=== PATIENT | female | born 1960 | race Caucasian/White ===

== ENCOUNTER 2017-01-07 18:20 | Emergency (ER) | payer OTHER ==
[~2017-01-07] VITALS: Ht 154.9 cm; Wt 88.7 kg
[~2017-01-07 18:20] MED LIST: ASPI-558 PO; MULT-1243 PO; ORPH100T2 PO; TRAM50TA53 PO
--- OUTSIDE RECORDS SUMMARY | 2017-01-07 18:23 | XMS REPORT | Continuity of Care Document ---
Author Author [facility] Organization [facility] Address Unknown Phone Unavailable Support Name Relationship Address Phone DARRIUS SINGLETON MD Caregiver [address] [phone] PHILIPPE CACERES MD Caregiver [address] [place] [phone] MARLEN REYES Next Of Kin [address] [place] [address] Insurance Providers Payer Name Policy Number Subscriber Name Relationship Auto A Insurance Sheila Reyes 19 Self [facility] [id number] Sheila Reyes 19 Self Advance Directives Directive Response Recorded Date/Time Advanced Directives Type None 10/23/14 10:30pm Problems Medical Problems Problem Onset Date Status Neck muscle strain Unknown Active Sciatica Unknown Active Low back strain Unknown Active Neck muscle strain Unknown Active Medications Medication Dose Route Sig Days/Qty Instructions Order Date Discontinued Date Status [None] 05/16/09 02/21/10 Discontinued Aspirin DAILY 02/21/10 Active Cholecalciferol (Vitamin D3) 2,000 Unit PO DAILY 05/23/12 08/08/12 Discontinued Ferrous Sulfate 325 ( PO DAILY 05/23/12 08/08/12 Discontinued Multivits-Min/FA/Lycopene/Lut 1 Tab PO DAILY 06/19/14 Active Orphenadrine Citrate 100 Mg PO EVERY 12 HOURS 14 Qty 10/24/14 Active Tramadol HCl 50 Mg PO Q6H/0300,0900,1500,2100 For PAIN 20 Qty Take 1 tablet, by mouth, every 6 hours. 10/24/14 Active Social History Social History Problem Response Recorded Date/Time Chewing Tobacco Status No 10/23/2014 9:22pm Hx Substance Use No 10/23/2014 9:22pm Hx Alcohol Use Y social 10/23/2014 9:22pm Query Response Start Date Stop Date Smoking Status Never smoker Hospital Discharge Instructions No hospital discharge instructions. Plan of Care No plan of care. Functional Status Query Response Date Recorded Physical Hygiene Self October 23, 2014 9:22pm Disabilities Visual October 23, 2014 9:22pm Devices Used Glasses October 23, 2014 9:22pm Dressing Self October 23, 2014 9:22pm Ambulation Self October 23, 2014 9:22pm Diet Self October 23, 2014 9:22pm Mental Status Alert Oriented October 23, 2014 9:22pm Disabilities Visual October 23, 2014 9:22pm Devices Used Glasses October 23, 2014 9:22pm Physical Hygiene Self October 23, 2014 9:22pm Dressing Self October 23, 2014 9:22pm Ambulation Self October 23, 2014 9:22pm Diet Self October 23, 2014 9:22pm Allergies, Adverse Reactions, Alerts Allergen Type Severity Reaction Status Last Updated No Known Allergies Active 10/23/14 Immunizations Name Given Type Hx Influenza Vaccination Y 09/2014 Historical Hx Pneumococcal Vaccination No Historical Hx Influenza Vaccination Y 09/2014 Historical Vital Signs Acute Vital Signs Vital Response Date/Time Temperature (Fahrenheit) 98.2 deg F (96.8 - 99.1) Temperature (Calculated Celsius) 36.17334 degrees C (36.0 - 37.3) Pulse Rate (adult) 88 bpm (60 - 100) Respiratory Rate 16 breaths/min (10 - 20) O2 Sat by Pulse Oximetry 96 % (90 - 100) Blood Pressure 129/74 mm Hg Height 5 ft 2 in Weight 205 lb Body Mass Index 37.0 kg/m^2 Results Test Source Date Result Interp. Ref. Range Comments Alanine Aminotransferase (ALT/SGPT) May 02, 2013 12:40am 41 U/L N 9- 52 Albumin May 02, 2013 12:40am 4.6 G/DL N 3.5-5.0 Albumin/Globulin Ratio May 02, 2013 12:40am 1.2 RATIO N 1.1-2.2 Alkaline Phosphatase May 02, 2013 12:40am 123 U/L N 38-126 Amylase Level August 08, 2012 9:45pm 66 U/L N 30-110 Anion Gap May 02, 2013 12:40am 14 MEQ/L N 5-15 Aspartate Amino Transf (AST/SGOT) May 02, 2013 12:40am 43 U/L H 14- 36 BUN/Creatinine Ratio May 02, 2013 12:40am 24 RATIO N 6-26 Basophils # (Auto) May 02, 2013 12:40am 0.1 T/MM3 N 0-0.2 Basophils (%) (Auto) May 02, 2013 12:40am 0.8 % N 0-2 Blood Urea Nitrogen May 02, 2013 12:40am 12.0 MG/DL N 7-17 Calcium Level May 02, 2013 12:40am 9.3 MG/DL N 8.4-10.2 Calculated Osmolality May 02, 2013 12:40am 277 MOSM/KG N 261-280 Carbon Dioxide Level May 02, 2013 12:40am 28 MEQ/L N 22-30 Chloride Level May 02, 2013 12:40am 102 MEQ/L N 98-107 Conjugated Bilirubin May 02, 2013 12:40am 0.00 MG/DL N 0.00-0.30 Creatinine May 02, 2013 12:40am 0.5 MG/DL L 0.7-1.2 Eosinophils # (Auto) May 02, 2013 12:40am 0.2 T/MM3 N 0-0.5 Eosinophils (%) (Auto) May 02, 2013 12:40am 1.8 % N 0-4 Gastric Fluid Occult Blood November 08, 2011 11:20pm Pos - Has specimen been collected/obtained? Y Gastric Fluid pH November 08, 2011 11:20pm Test not performed - Globulin May 02, 2013 12:40am 3.9 G/DL H 2.4-3.6 Glucose Level May 02, 2013 12:40am 106 MG/DL N 65-110 Hematocrit May 02, 2013 12:40am 42.6 % N 36-46 Hemoglobin May 02, 2013 12:40am 14.7 GM/DL N 12-16 Lipase May 02, 2013 12:40am 137 U/L N 23-300 Lymphocytes # (Auto) May 02, 2013 12:40am 5.2 T/MM3 H 1-4.8 Lymphocytes (%) (Auto) May 02, 2013 12:40am 51.4 % H 23-45 Mean Corpuscular Hemoglobin May 02, 2013 12:40am 29.9 UUG N 26-34 Mean Corpuscular Hemoglobin Concent May 02, 2013 12:40am 34.5 GM/DL N 31-37 Mean Corpuscular Volume May 02, 2013 12:40am 86.8 UM3 N 80-100 Mean Platelet Volume May 02, 2013 12:40am 8.8 UM3 L 9.4-12.4 Monocytes # (Auto) May 02, 2013 12:40am 0.7 T/MM3 N 0-0.8 Monocytes (%) (Auto) May 02, 2013 12:40am 6.8 % N 0-9.0 Neutrophils # (Auto) May 02, 2013 12:40am 3.9 T/MM3 N 1.8-7.7 Neutrophils (%) (Auto) May 02, 2013 12:40am 39.0 % N 33-66 Platelet Count May 02, 2013 12:40am 286 T/MM3 N 130-400 Potassium Level May 02, 2013 12:40am 3.7 MEQ/L N 3.6-5 RDW Standard Deviation May 02, 2013 12:40am 40.0 FL N 36.9-50.2 Red Blood Count May 02, 2013 12:40am 4.91 M/MM3 N 4.00-5.20 Sodium Level May 02, 2013 12:40am 144 MEQ/L N 134-144 Thyroid Stimulating Hormone (TSH) November 09, 2011 5:00am 0.53 MIU/L N 0.47-4.68 COMMENT may use blood from lab Total Bilirubin May 02, 2013 12:40am 0.60 MG/DL N 0.20-1.30 Total Protein May 02, 2013 12:40am 8.5 G/DL H 6.3-8.2 Troponin I May 02, 2013 12:40am < 0.012 ng/ml 0-0.12 Unconjugated Bilirubin May 02, 2013 12:40am 0.20 MG/DL N 0.00-1.10 Urine Bacteria August 08, 2012 10:30pm 4+ H - Has specimen been collected/obtained? Y Urine Bilirubin August 08, 2012 10:30pm Negative - Has specimen been collected/obtained? Y Urine Blood August 08, 2012 10:30pm Negative - Has specimen been collected/obtained? Y Urine Collection Type August 08, 2012 10:30pm Voided - Has specimen been collected/obtained? Y Urine Color August 08, 2012 10:30pm Yellow - Has specimen been collected/obtained? Y Urine Culture Indicated August 08, 2012 10:30pm Cult reflexed &setup - Has specimen been collected/obtained? Y Urine Glucose (UA) August 08, 2012 10:30pm Negative - Has specimen been collected/obtained? Y Urine Ketones August 08, 2012 10:30pm Negative - Has specimen been collected/obtained? Y Urine Leukocyte Esterase August 08, 2012 10:30pm Trace H - Has specimen been collected/obtained? Y Urine Mucus November 08, 2011 11:00pm Present - Has specimen been collected/obtained? Y Urine Nitrite August 08, 2012 10:30pm Negative - Has specimen been collected/obtained? Y Urine Protein August 08, 2012 10:30pm Negative - Has specimen been collected/obtained? Y Urine RBC August 08, 2012 10:30pm 1-3 /HPF - Has specimen been collected/obtained? Y Urine Specific [place] August 08, 2012 10:30pm 1.025 - Has specimen been collected/obtained? Y Urine Squamous Epithelial Cells August 08, 2012 10:30pm Many - Has specimen been collected/obtained? Y Urine Turbidity August 08, 2012 10:30pm Slt cldy - Has specimen been collected/obtained? Y Urine Urobilinogen August 08, 2012 10:30pm 8 EU/DL H - Has specimen been collected/obtained? Y Urine WBC August 08, 2012 10:30pm 3-5 /HPF - Has specimen been collected/obtained? Y Urine pH August 08, 2012 10:30pm 6.0 - Has specimen been collected/ obtained? Y White Blood Count May 02, 2013 12:40am 10.1 T/MM3 N 4.5-11.0 Glomerular Filtration Rate Calc May 02, 2013 12:40am 130 - Immature Granulocyte # (Auto) May 02, 2013 12:40am 0.02 T/MM3 N 0.00- 0.03 Immature Granulocyte % (Auto) May 02, 2013 12:40am 0.2 % N 0.0-0.5 Urine Culture Urine, Clean Catch Voided August 08, 2012 11:01pm Mixed Gram Positive Organisms Procedures No known history of procedures. Encounters Encounter Location Date/Time Departed Emergency Room [facility] 10/23/14 8:33pm Recent Diagnosis
--- OUTSIDE RECORDS SUMMARY | 2017-01-07 18:24 | XMS REPORT | Continuity of Care Document ---
Author Author [facility] Organization [facility] Address Unknown Phone Unavailable Support Name Relationship Address Phone DARRIUS SINGLETON MD Caregiver [address] [place] [address] [place], [place] [phone] JOVAN CRUZ FACS, MD Caregiver [address] [place] [address] [place] [phone] MARLEN REYES Next Of Kin [address] [place], [place] [id number] Insurance Providers Payer Name Policy Number Subscriber Name Relationship [facility] [id number] Sheila Reyes 19 Self Advance Directives Directive Response Recorded Date/Time Ordered Resuscitation Status Full Code 06/19/14 2:45pm Problems No known problems or medical conditions. Medications Medication Dose Route Sig Days/Qty Instructions Order Date Discontinued Date Status [None] 05/16/09 02/21/10 Discontinued Aspirin DAILY 02/21/10 Active Cholecalciferol (Vitamin D3) 2,000 Unit PO DAILY 05/23/12 08/08/12 Discontinued Ferrous Sulfate 325 ( PO DAILY 05/23/12 08/08/12 Discontinued Multivits-Min/FA/Lycopene/Lut 1 Tab PO DAILY 06/19/14 Active Social History Social History Problem Response Recorded Date/Time Smoking Status Never smoker 06/22/2014 8:19am Chewing Tobacco Status No 06/22/2014 8:19am Hx Substance Use No 06/22/2014 8:19am Hx Alcohol Use No 06/22/2014 8:19am Query Response Start Date Stop Date Smoking Status Never smoker Hospital Discharge Instructions No hospital discharge instructions. Plan of Care No plan of care. Functional Status No functional status results. Allergies, Adverse Reactions, Alerts Allergen Type Severity Reaction Status Last Updated No Known Allergies Active 05/02/13 Immunizations Name Given Type Hx Influenza Vaccination Y FALL 2012 Historical Hx Pneumococcal Vaccination No Historical Hx Influenza Vaccination Y FALL 2012 Historical Vital Signs Acute Vital Signs Vital Response Date/Time Temperature (Fahrenheit) 96.9 deg F (96.8 - 99.1) Temperature (Calculated Celsius) 36.36790 degrees C (36.0 - 37.3) Temperature Source Temporal Pulse Rate (adult) 56 bpm (60 - 100) Respiratory Rate 12 breaths/min (10 - 20) O2 Sat by Pulse Oximetry 96 % (90 - 100) Oxygen Delivery Method Room Air Blood Pressure 122/68 mm Hg Blood Pressure Source Automatic Cuff Height 5 ft 2 in Weight 209 lb Body Mass Index 38.0 kg/m^2 Results Test Source Date Result Interp. [...] Has specimen been collected/obtained? Y Urine Specific [place] August 08, 2012 10:30pm 1.025 - Has [...] 2012 11:01pm Mixed Gram Positive Organisms Procedures Procedure Status Date Provider(s) Colonoscopy with polypectomy and biopsy completed 06/22/14 JOVAN CRUZ MD, FACS, CWS
[2017-01-07 18:38] VITALS: TEMP 101.4; Ht 154.9 cm; Wt 88.7 kg
[2017-01-07] MEDS ORDERED: ONDANSETRON 4mg/2ml INJECTION IV ONE (19:00)
[2017-01-07] MEDS ORDERED: G.I. COCKTAIL 30ml PO ONE (19:00)
--- NOTE | 2017-01-07 19:07 | ERPDOC ---
Departure Disposition Decision Date: Jan 07, 2017 Disposition Decision Time: 20:59 Disposition: 01 DISCHARGED HOME, SELF-CARE Impression Impression Impression: Primary Impression: Gastroenteritis Severity: Moderate Condition: Improved Seen By: Physician only Referrals: DARRIUS SINGLETON MD (Family) 3 Days Patient Instructions: Gastroenteritis (ED) Problems/Meds/Labs Reviewed?: Yes Medications reviewed and manag: Yes Additional Instructions: You have a stomach bug. Drink lots of fluids, take tylenol and ibuprofen as needed for pain, allow the diarrhea to run its course. Follow up with your doctor in the coming days. Follow up care ordered?: Yes Mental Status: Alert, Oriented HPI - Abdominal Pain General Chief Complaint: Nausea,Vomiting,Diarrhea Stated Complaint: F/D/N Time Seen by Provider: 18:53 Source: patient History/Exam Limitations: no limitations HPI - Abdominal Pain Initial Comments 56yo woman presents to the ER tonight with abd pain, diarrhea, fever, and nausea. Pt has had fevers to 102.4'F that responded to tylenol. Today, fevers stopped, but she started to have abd cramping with diarrhea and nausea. Has not had this before. Occurred At: home Onset: Gradual, Getting worse Duration: other Pain Scale: Now & Worst: 3/10 Quality: cramping Location: LUQ, LLQ Radiation: no radiation Activities at Onset: none Modifying Factors: IMPROVES WITH: lying down, rest, WORSE WITH: movement, palpation Associated Symptoms: fever/chills, nausea/vomiting Hx of Similar Symptoms: No Allergies: Coded Allergies: No Known Allergies (Verified , 01/07/17) Past History Past Medical History Cardiac: CAD GI: gallbladder disease Surgical History General: appendix, gallbladder, hernia Vaccines Hx Influenza Vaccination: Yes (09/2014) Hx Pneumococcal Vaccination: No Social History Sexuality: male partner Review of Systems Constitutional Constitutional: fever GI Upper Abdomen: nausea, pain, DENIES: dysphagia, food intolerances, heartburn/ indigestion, hematemesis, vomiting Lower Abdomen: diarrhea, pain, DENIES: blood in stool, wm-colored stools, constipation, melena, painful BM All other Systems All Other Systems: Reviewed and Negative Physical Exam General General Nourishment: well nourished, well developed, appears stated age, no acute distress, adult, obese Vitals and Pain First Documented Vital Signs Date Time Temp Pulse Resp B/P Pulse Ox O2 Delivery O2 Flow Rate FiO2 01/07/17 18:38 101.4 88 16 145/74 95 Room Air Weight: Kilograms: 88.700 Height (feet): 5 Height (inches): 1.00 Triage Pain Scale: Normal Exams: Head: Normocephalic w/o trauma Eyes: Pupils are PERRLA w/ EOMI, No scleral icterus, irritation ENMT: No facial trauma, nasal exudates, pharyngeal erythema Neck: Full range of motion, without adenopathy, JVD Lymphatic: No lymphadenopathy Musculoskeletal: No tenderness, or deformity noted Integumentary: No rashes, hives, or bruising noted Neurologic: Patient is alert, and oriented Psychiatric: Patient exhibits, appropriate attention Respiratory (brief) Respiratory: FOUND: clear all garcia, equal bilaterally, symmetrical, NOT FOUND : rales, wheezes Cardiovascular (brief) Cardiac: FOUND: regular rate, regular rhythm, NOT FOUND: click, gallop, murmur , pedal edema, peripheral edema, rub Capillary Refill: <2 sec Pulses: all distal extremities, equal, strong Abdomen (brief) Abdominal Brief: FOUND: bowel normo active x4, soft, tender (Mildly TTP along left side, without peritoneal signs.), NOT FOUND: distended, hepatosplenomegaly , pulsatile mass Differential Diagnoses Considering: Bowel Obstruction, Dehydration, Diverticulitis, Food Poisoning, Gastroenteritis, Pyelonephritis, UTI Progress Results/Orders Orders Procedure Category Date Status Time Iv Lock (Ed Only) EDM 01/07/17 Transmitted 18:55 Nothing By Mouth (Ed EDM 01/07/17 Transmitted Only) 18:55 Cbc W/Auto LAB 01/07/17 Complete Diff-Reflex Manual 18:55 Bmp - Basic Metabolic LAB 01/07/17 Complete Panel 18:55 Ua, Dip Wreflex LAB 01/07/17 Complete Microsc & Terminal Make Up Operator 18:55 Ondansetron Inj PHA 01/07/17 Complete (Zofran) 19:00 G.I. Cocktail PHA 01/07/17 Complete (/Maalox/Lidocaine 19:00 Ct Abd/Pelvis CT 01/07/17 Resulted W/Contrast Only 19:03 Normal Saline (Normal PHA 01/07/17 Complete Saline Iv) 20:00 Iohexol (Omnipaque) PHA 01/07/17 Complete 20:13 Normal Saline (Ns) PHA 01/07/17 Complete 20:13 Saline Flush (Iv PHA 01/07/17 Complete Flush) 20:13 Lab Results Laboratory Tests Test 01/07/17 19:30 White Blood Count 5.6T/MM3 Red Blood Count 4.72M/MM3 Hemoglobin 14.4GM/DL Hematocrit 41.3% Mean Corpuscular Volume 87.5UM3 Mean Corpuscular Hemoglobin 30.5UUG Mean Corpuscular Hemoglobin Concent 34.9GM/DL RDW Standard Deviation 41.2FL Platelet Count 167T/MM3 Mean Platelet Volume 9.1UM3 Immature Granulocyte % (Auto) 0.0% Neutrophils (%) (Auto) 67.8% Lymphocytes (%) (Auto) 24.6% Monocytes (%) (Auto) 7.0% Eosinophils (%) (Auto) 0.2% Basophils (%) (Auto) 0.4% Absolute Immature Granulocyte (auto 0.00T/MM3 Absolute Neutrophils (auto) 3.8T/MM3 Absolute Lymphocytes (auto) 1.4T/MM3 Absolute Monocytes (auto) 0.4T/MM3 Absolute Eosinophils (auto) 0.0T/MM3 Absolute Basophils (auto) 0.0T/MM3 Urine Collection Type Cleancatch-midstream Urine Color Yellow Urine Turbidity Clear Urine pH 6.0 Urine Specific [place] 1.015 Urine Protein Negative Urine Glucose (UA) Negative Urine Ketones Negative Urine Blood Trace-intact Urine Nitrite Negative Urine Bilirubin Negative Urine Urobilinogen 2.0EU/DL Urine Leukocyte Esterase Negative Urinalysis Comment Microscopic not ind. Turbidity < 20 Sodium Level 139MEQ/L Potassium Level 4.2MEQ/L Chloride Level 101MEQ/L Carbon Dioxide Level 26MEQ/L Anion Gap 12MEQ/L Blood Urea Nitrogen 10.0MG/DL Creatinine 0.5MG/DL Glomerular Filtration Rate Calc 128 BUN/Creatinine Ratio 20RATIO Glucose Level 140MG/DL Calculated Osmolality 269MOSM/KG Calcium Level 8.8MG/DL Icterus Index < 2 Chemistry Specimen Hemolysis < 15 Medications Current ED Medications Ondansetron HCl (Zofran) 4 mg O ONCE IV Last administered on 01/07/17t 19:32; Start 01/07/17 at 19:00; Stop 01/07/17 at 19:01; Status DC Pharmacy Profile Note 30 ml 30 ml O ONCE PO Last administered on 01/07/17 19: 32; Start 01/07/17 at 19:00; Stop 01/07/17 at 19:01; Status DC Sodium Chloride (Normal Saline IV) 1,000 ml @ 0 mls/hr Q0M ONCE IV Last administered on 01/07/17 20:05; Start 01/07/17 at 20:00; Stop 01/07/17 at 20:01 ; Status DC Iohexol 1 bottle 1 bottle STK-MED ONCE .ROUTE ; Start 01/07/17 at 20:13; Stop at 20:14; Status DC Sodium Chloride (NS) 100 ml @ As Directed STK-MED ONCE .ROUTE ; Start 01/07/17 at 20:13; Stop 01/07/17 at 20:14; Status DC Sodium Chloride (Iv Flush) 10 ml STK-MED ONCE .ROUTE ; Start 01/07/17 at 20:13; Stop 01/07/17 at 20:14; Status DC Progress Progress Pt with no acute findings on Hx, PE, labs or rads. Discussed pts dx, prognosis, and tx; pt voiced understanding. F/u with PCM. CT CT : CT: Abd/Pelvis IV contrast Interpretation: Normal, Reviewed Written Report ED PAIGE DO Jan 07, 2017 19:07 ED PAIGE DO Jan 07, 2017 19:07
--- OUTSIDE RECORDS SUMMARY | 2017-01-07 19:16 | XMS REPORT | Continuity of Care Document ---
Author Author [facility] Organization [facility] Address Unknown Phone Unavailable Support Name Relationship Address Phone DARRIUS SINGLETON MD Caregiver [address] [place] [address] [place] [phone] JOVAN CRUZ FACS, MD Caregiver [address] [place] [address] [place] [phone] MARLEN REYES Next Of Kin [address] [place], [place] [id number] Insurance Providers Payer Name Policy Number Subscriber Name Relationship [facility] [id number] Sheila Reyes 19 Self Advance Directives Directive [...] F (96.8 - 99.1) Temperature (Calculated Celsius) 36.09731 degrees C (36.0 - 37.3) Temperature Source [...] Has specimen been collected/obtained? Y Urine Specific [place] August 08, 2012 10:30pm 1.025 - Has [...]
--- OUTSIDE RECORDS SUMMARY | 2017-01-07 19:16 | XMS REPORT | Continuity of Care Document ---
Author Author [facility] Organization [facility] Address Unknown Phone Unavailable Support Name Relationship Address Phone DARRIUS SINGLETON MD Caregiver [address] [place] [phone] PHILIPPE CACERES MD Caregiver [address] [place] [phone] MARLEN REYES Next Of Kin [address] [place] [address] Insurance Providers Payer Name Policy Number Subscriber Name Relationship Auto A Insurance Sheila Reyes 19 Self [facility] [id number] Sheila Reyes 19 Self Advance Directives Directive [...] F (96.8 - 99.1) Temperature (Calculated Celsius) 36.59509 degrees C (36.0 - 37.3) Pulse Rate [...] Has specimen been collected/obtained? Y Urine Specific [place] August 08, 2012 10:30pm 1.025 - Has [...] Encounters Encounter Location Date/Time Departed Emergency Room [facility] 10/23/14 8:33pm Recent Diagnosis
[2017-01-07 19:37] LABS: BASOPHILS % (AUTO) 0.4 % (0-2); BLOOD, URINE TRACE-INTACT (NEGATIVE); COLOR,URINE YELLOW (YELLOW); EOSINOPHILS % (AUTO) 0.2 % (0-4); HCT - HEMATOCRIT 41.3 % (36-46); HGB - HEMOGLOBIN 14.4 GM/DL (12-16); LEUKOCYTE ESTERASE ,URINE NEGATIVE (NEGATIVE); LYMPHOCYTES # (AUTO) 1.4 T/MM3 (1-4.8); LYMPHOCYTES % (AUTO) 24.6 % (23-45); MEAN CORPUSCULAR HGB 30.5 UUG (26-34); MEAN CORPUSCULAR HGB CONC(MCHC 34.9 GM/DL (31-37); MEAN CORPUSCULAR VOLUME 87.5 UM3 (80-100); MEAN PLATELET VOLUME 9.1 UM3 (9.4-12.4); MONOCYTES # (AUTO) 0.4 T/MM3 (0-0.8); NEUTROPHILS #(AUTO)-ABSOLUTE 3.8 T/MM3 (1.8-7.7); NEUTROPHILS % (AUTO) 67.8 % (33-66); NITRITE,URINE NEGATIVE (NEGATIVE); RED BLOOD COUNT 4.72 M/MM3 (4.00-5.20); WBC - WHITE BLOOD COUNT 5.6 T/MM3 (4.5-11.0)
[2017-01-07 19:52] LABS: ANION GAP 12 MEQ/L (5-15); BUN/CREATININE RATIO 20 RATIO (6-26); CALCIUM 8.8 MG/DL (8.4-10.2); CHLORIDE 101 MEQ/L (98-107); CO2 - CARBON DIOXIDE 26 MEQ/L (22-30); CREATININE 0.5 MG/DL (0.7-1.2); GLOMERULAR FILTRATION RATE 128; GLUCOSE 140 MG/DL (65-110); POTASSIUM 4.2 MEQ/L (3.6-5); SODIUM 139 MEQ/L (134-144)
[2017-01-07] MEDS ORDERED: NORMAL SALINE 1,000 ML IV ONE (20:00)
--- NOTE | 2017-01-07 20:00 | NUR ---
STATUS PT RESTING IN CART WITH EYES CLOSED. REPORTS DECREASE IN PAIN TO 3/10 AFTER GI COCKTAIL AND DENIES NAUSEA AFTER ZOFRAN. VSS. CALL LIGHT WITHIN REACH, WILL CONTINUE TO MONITOR.
[2017-01-07] MEDS ORDERED: SALINE FLUSH 10ml SYRINGE ONE (20:13)
[2017-01-07] MEDS ORDERED: IOHEXOL 300 MG/ML 100ml INJECTION ONE (20:13)
[2017-01-07] MEDS ORDERED: NORMAL SALINE 100 ML ONE (20:13)
--- NOTE | 2017-01-07 20:16 | NUR ---
CT PT TO CT BY CART AT THIS TIME.
--- NOTE | 2017-01-07 20:33 | NUR ---
RETURN PT RETURNED FROM CT BY CART AT THIS TIME.
--- NOTE | 2017-01-07 20:57 | NUR ---
PROVIDER DR. PIAGE AT BEDSIDE TO SPEAK WITH PT.
[2017-01-07 21:11] VITALS: BP 135/70; PULSE 83; RESP 16; O2SAT 92
--- NOTE | 2017-01-07 21:11 | NUR ---
DISCHARGE WRITTEN INSTRUCTIONS REVIEWED AND SENT WITH PT. PT VERBALIZES UNDERSTANDING OF DI, DENIES QUESTIONS. REPORTS ABDOMINAL "ACHE" CURRENTLY / AND CONTINUES TO DENY NAUSEA. PT AMBULATES OUT OF ER WITH STEADY GAIT ACCOMP BY SPOUSE AT THIS TIME.
--- NOTE | 2017-01-08 08:24 | DI ---
Indication: ITS.REASON: Abd pain with diarrhea PROCEDURE: CT ABD/PELVIS W/CONTRAST ONLY: Encounter: Initial Comparison: None Technique: Axial CT images were performed through the abdomen and pelvis after the administration of intravenous contrast. Coronal and sagittal two-dimensional reformats. Automated Exposure Control and Iterative Reconstruction dose reducing techniques were utilized. Contrast: Omnipaque 300 100 mL Findings: The lung bases are clear apart from minimal subpleural atelectasis or scarring. The liver is normal. Gallbladder is surgically absent. The spleen, pancreas and adrenal glands are within normal limits. Kidneys are normal. No abdominal or pelvic lymphadenopathy. Postoperative changes from prior ventral hernia repair. Bladder is normal. Uterus is absent. No free fluid or evidence of a bowel obstruction. The appendix is normal. Bone windows show no acute findings. Impression: No acute disease process seen. There is a preliminary report by [facility]. .
== END 2017-01-07 21:11 | disposition home or self-care (01) ==
LOC: ED 18:20
DX: K52.9 Noninfective gastroenteritis and colitis, unspecified (principal)
CPT/HCPCS: 80048; 81003; 85025